=== PATIENT | male | born 2000 | race Two or more races ===

== ENCOUNTER 2019-06-25 13:42 | Emergency (ER) | payer OTHER ==
[~2019-06-25] VITALS: Ht 177.8 cm; Wt 76.1 kg
[~2019-06-25 13:42] MED LIST: OXYC-302 PO
[2019-06-25 15:43] VITALS: BP 115/88
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
== END 2019-06-25 16:53 | disposition home or self-care (01) ==
LOC: ED 15:36
DX: R07.89 Other chest pain (principal)
CPT/HCPCS: 93005; 99283